=== PATIENT | male | born 1985 ===

== ENCOUNTER 2022-04-20 19:45 | Emergency (ER) | payer BC ==
[2022-04-20 20:56] LABS: Hematocrit 32.6 % (39.6-49.0)
[2022-04-20 20:58] LABS: Protime INR 0.94
[2022-04-20 21:01] LABS: Absolute Lymphocytes (CBC) 2.8 K/uL (0.7-4.9); Lymphocytes % 31.2 % (15.3-44.8); MCV 76.1 fL (80-100); MPV 8.1 fL (7.6-11.3); RBC Red Blood Cell Count 4.28 M/uL (4.33-5.43)
[2022-04-20 21:19] LABS: ALT/SGPT 28 U/L (12-78); AST/SGOT 31 U/L (15-37); Albumin 2.9 g/dL (3.4-5.0); Alkaline Phosphatase 151 U/L (45-117); BUN Blood Urea Nitrogen 17 mg/dL (7-18); Bicarbonate 23 mmol/L (21-32); Bilirubin Total 0.2 mg/dL (0.2-1.0); Glomerular Filtration Rate 72 ml/min (=/>90); Glucose Level 237 mg/dL (74-106); Magnesium 1.8 mg/dL (1.8-2.4); NT PRO-BNP 174 pg/mL (<125); Potassium 3.8 mmol/L (3.5-5.1); Protein, Total 8.7 g/dL (6.4-8.2); Sodium Level 139 mmol/L (136-145)
[2022-04-20 21:20] LABS: Bilirubin Direct < 0.1 mg/dL (0-0.2)
--- NOTE | 2022-04-20 21:39 | ER ---
Nurse's Notes [facility] Name: Дмитрий Soto Age: 36 yrs Sex: Male : 1985 Arrival Date: 04/20/2022 Time: 19:50 Bed 8 Private MD: Diagnosis: Osteomyelitis, unspecified-right foot;Personal history of diabetic foot ulcer;Cellulitis and acute lymphangitis of other parts of limb-foot, ankle;Type 1 diabetes mellitus with hyperglycemia;Anemia, unspecified Presentation: 04/20 20:17 Acuity: OSCAR 2 [facility] 20:27 Chief complaint: Patient states: Diagnosed Osteomyelitis to right foot, left AMA from [address] in [place], [place] after admission 2 weeks ago and drove here for care to foot; PICC line to OWEN from previous facility; Hx of DM type 1. Coronavirus screen: At this time, the client does not indicate any symptoms associated with coronavirus-19. Ebola Screen: No symptoms or risks identified at this time. Initial Sepsis Screen: Does the patient meet any 2 criteria? HR > 90 bpm. Does the patient have a suspected source of infection? Yes: Skin breakdown/wound. Risk Assessment: Do you want to hurt yourself or someone else? Patient reports no desire to harm self or others. Onset of symptoms was April 20, 2022. 20:27 Method Of Arrival: Wheelchair [facility] Historical: - Allergies: 20:29 Demerol; lp1 - Home Meds: 20:31 Omeprazole Oral [Active]; Cymbalta oral [Active]; Oxycodone HCl Oral [Active]; lp1 - PMHx: 20:29 Diabetes mellitus; Depressive disorder; Anxiety; Neuropathy; Hypertensive disorder; HLD;lp1 20:30 Blood clot to right arm; lp1 20:31 DKA; lp1 - PSHx: 20:29 Foot sx; lp1 - Immunization history:: Adult Immunizations up to date. - Social history:: Smoking status: Reported history of juuling and/or vaping. - Family history:: not pertinent. Screenin:03 Abuse screen: Denies threats or abuse. Denies injuries from another. Nutritional sm5 screening: No deficits noted. Tuberculosis screening: No symptoms or risk factors identified. Fall Risk None identified. Assessment: 22:02 General: Appears in no apparent distress. Behavior is cooperative. Pain: Complains of sm5 pain in right foot. Neuro: Level of Consciousness is awake, alert, obeys commands, Oriented to person, place, time, situation. Cardiovascular: Capillary refill < 3 seconds Patient's skin is warm and dry. Rhythm is sinus tachycardia. Respiratory: Airway is patent Trachea midline Respiratory effort is even, unlabored. Musculoskeletal: Swelling R foot. 23:00 Reassessment: No changes from previously documented assessment. Patient and/or family 5 updated on plan of care and expected duration. Pain level reassessed. 04/21 00:23 Reassessment: No changes from previously documented assessment. 5 Vital Signs: 04/20 20:27 BP 124 / 86; Pulse 133; Resp 18; Temp 98.7(O); Pulse Ox 100% on R/A; Pain 8/10; lp1 22:03 BP 132 / 95; Pulse 113; Resp 18; Pulse Ox 98% on R/A; sm5 22:34 Weight 97.98 kg (R); Height 6 ft. 3 in. (190.50 cm) (R); bb 04/21 00:23 BP 140 / 89; Pulse 103; Resp 14; Pulse Ox 98% on R/A; sm5 04/20 22:34 Body Mass Index 27.00 (97.98 kg, 190.50 cm) ED Course: 04/20 19:50 Patient arrived in ED. ag3 20:17 Triage completed. lp1 20:24 Leonardo Hughes MD is Attending Physician. miranda 20:29 Ap Foreman, RYLIE is Primary Nurse. as6 20:29 Arm band placed on. lp1 21:01 XRAY Chest (1 view) In Process Unspecified. EDMS 21:01 Foot Right 3 View XRAY In Process Unspecified. EDMS 21:35 Dr. Hughes initiated transfer with [facility], spoke with Feliz Schaffer. wm 22:02 US Extremity Venous Unilateral Ltd In Process Unspecified. EDMS 22:03 Patient has correct armband on for positive identification. Bed in low position. Call 5 light in reach. Side rails up X2. 22:24 Notified ED physician of a critical lab result(s). lactate of 3.7 Dr Hughes notified. bb 23:29 Wound care: to cellulitis located on right foot was cleaned with Betadine, dressed with sm5 4X4s, cling. 23:37 Pt accepted for transfer by Dr. Camron Lubin. 04/21 00:24 No provider procedures requiring assistance completed. Patient transferred, IV remains [address] Administered Medications: 04/20 22:01 Drug: NS 0.9% 1000 ml Route: IV; Rate: 1 bolus; Site: left upper arm; 5 22:02 Drug: Zosyn (piperacillin-tazobactam) 3.375 grams Route: IVPB; Infused Over: 60 mins; 5 Site: left upper arm; 23:00 Follow up: IV Status: Completed infusion; IV Intake: 100ml [facility] 22:11 Drug: Dilaudid (HYDROmorphone) 1 mg Route: IVP; Site: left upper arm; 5 04/21 00:24 Follow up: Response: No adverse reaction 5 04/20 22:11 Drug: Zofran (Ondansetron) 4 mg Route: IVP; Site: left upper arm; 5 04/21 00:24 Follow up: Response: No adverse reaction [facility] 04/20 23:28 Drug: vancoMYCIN 1.5 grams Route: IVPB; Rate: calculated rate; Site: left upper arm; 5 04/21 00:26 Follow up: IV Status: Infusion continued upon transfer [facility] Medication: 04/20 22:03 VIS not applicable for this client. sm5 Intake: 23:00 IV: 100ml; Total: 100ml. 5 Outcome: 21:38 ER care complete, transfer ordered by MD. jean 04/21 00:24 Transferred by ground EMS to [facility], Transfer form completed. X-rays 5 sent w/ patient. Condition: stable Instructed on the need for transfer. 00:27 Patient left the ED. [facility] Signatures: Dispatcher [employer] EDMS Leonardo Hughes MD MD cha Ballard, Brenda, RN RN bb Marcy Maldonado RN RN lp1 Ainsley Canales Wendy Ap Foreman RN RN as6 Amy Matta RN RN 5
--- NOTE | 2022-04-20 21:39 | EDPHYS ---
Physician Documentation [facility] Name: Дмитрий Soto Age: 36 yrs Sex: Male : 1985 Arrival Date: 04/20/2022 Time: 19:50 Bed 8 Private MD: KWADWO Physician Leonardo Hughes HPI: 04/20 21:23 This 36 yrs old Male presents to ER via Wheelchair with complaints of Open miranda Wound Bottom Of Foot. 21:23 The patient presents with decreased range of motion, pain, swelling, tenderness. The miranda complaints affect the right foot, lateral side of right foot, lateral side of right heel, right lateral malleolus and dorsum of right foot. Context: The problem was sustained at an unknown location. Onset: The symptoms/episode began/occurred 3 month(s) ago. Modifying factors: The symptoms are alleviated by nothing, the symptoms are aggravated by weight bearing, movement, wearing shoes. Associated signs and symptoms: Pertinent positives: swelling, warmth. Severity of symptoms: At their worst the symptoms were moderate, in the emergency department the symptoms are unchanged. The patient has experienced similar episodes in the past, multiple times. Historical: - Allergies: 20:29 Demerol; lp1 - Home Meds: 20:31 Omeprazole Oral [Active]; Cymbalta oral [Active]; Oxycodone HCl Oral [Active]; lp1 - PMHx: 20:29 Diabetes mellitus; Depressive disorder; Anxiety; Neuropathy; Hypertensive disorder; HLD;lp1 20:30 Blood clot to right arm; lp1 20:31 DKA; lp1 - PSHx: 20:29 Foot sx; lp1 - Immunization history:: Adult Immunizations up to date. - Social history:: Smoking status: Reported history of juuling and/or vaping. - Family history:: not pertinent. ROS: 21:23 Constitutional: Negative for fever, chills, and weight loss, Eyes: Negative for injury, miranda pain, redness, and discharge, ENT: Negative for injury, pain, and discharge, Neck: Negative for injury, pain, and swelling, Cardiovascular: Negative for chest pain, palpitations, and edema, Respiratory: Negative for shortness of breath, cough, wheezing, and pleuritic chest pain, Abdomen/GI: Negative for abdominal pain, nausea, vomiting, diarrhea, and constipation, Back: Negative for injury and pain, : Negative for injury, bleeding, discharge, and swelling, Neuro: Negative for headache, weakness, numbness, tingling, and seizure, Psych: Negative for depression, anxiety, suicide ideation, homicidal ideation, and hallucinations, Allergy/Immunology: Negative for hives, rash, and allergies, Endocrine: Negative for neck swelling, polydipsia, polyuria, polyphagia, and marked weight changes, Hematologic/Lymphatic: Negative for swollen nodes, abnormal bleeding, and unusual bruising. 21:23 MS/extremity: Positive for decreased range of motion, erythema, pain, swelling, tenderness, of the lateral aspect of right foot, right heel and dorsum of right foot. Exam: 21:23 Constitutional: This is a well developed, well nourished patient who is awake, alert, miranda and in no acute distress. Head/Face: Normocephalic, atraumatic. Eyes: Pupils equal round and reactive to light, extra-ocular motions intact. Lids and lashes normal. Conjunctiva and sclera are non-icteric and not injected. Cornea within normal limits. Periorbital areas with no swelling, redness, or edema. ENT: Nares patent. No nasal discharge, no septal abnormalities noted. Tympanic membranes are normal and external auditory canals are clear. Oropharynx with no redness, swelling, or masses, exudates, or evidence of obstruction, uvula midline. Mucous membranes moist. Neck: Trachea midline, no thyromegaly or masses palpated, and no cervical lymphadenopathy. Supple, full range of motion without nuchal rigidity, or vertebral point tenderness. No Meningismus. Chest/axilla: Normal chest wall appearance and motion. Nontender with no deformity. No lesions are appreciated. Respiratory: Lungs have equal breath sounds bilaterally, clear to auscultation and percussion. No rales, rhonchi or wheezes noted. No increased work of breathing, no retractions or nasal flaring. Abdomen/GI: Soft, non-tender, with normal bowel sounds. No distension or tympany. No guarding or rebound. No evidence of tenderness throughout. Back: No spinal tenderness. No costovertebral tenderness. Full range of motion. Male : Normal genitalia with no discharge or lesions. Neuro: Awake and alert, GCS 15, oriented to person, place, time, and situation. Cranial nerves II-XII grossly intact. Motor strength 5/5 in all extremities. Sensory grossly intact. Cerebellar exam normal. Normal gait. Psych: Awake, alert, with orientation to person, place and time. Behavior, mood, and affect are within normal limits. 21:23 Cardiovascular: Rate: tachycardic, actual rate is 133 bpm, Rhythm: regular, Pulses: Pulses are 4+ in bilateral radial, brachial, femoral, popliteal, posterior tibial and and dorsalis pedis arteries.. Heart sounds: normal, Edema: is not appreciated, JVD: is not appreciated. 21:32 ECG was reviewed by the Attending Physician. [facility] Vital Signs: 20:27 BP 124 / 86; Pulse 133; Resp 18; Temp 98.7(O); Pulse Ox 100% on R/A; Pain 8/10; lp1 22:03 BP 132 / 95; Pulse 113; Resp 18; Pulse Ox 98% on R/A; sm5 22:34 Weight 97.98 kg (R); Height 6 ft. 3 in. (190.50 cm) (R); bb 04/21 00:23 BP 140 / 89; Pulse 103; Resp 14; Pulse Ox 98% on R/A; sm5 04/20 22:34 Body Mass Index 27.00 (97.98 kg, 190.50 cm) bb MDM: 04/20 20:24 Patient medically screened. [facility] 21:26 Differential diagnosis: fracture, foreign body, gout, cellulitis. Data reviewed: vital miranda signs, nurses notes, lab test result(s), EKG, radiologic studies, plain films. Data interpreted: traffic monitor specialist: rate is 133 beats/min, rhythm is regular. Test interpretation: by ED physician or midlevel provider: ECG, plain radiologic studies. Counseling: I had a detailed discussion with the patient and/or guardian regarding: the historical points, exam findings, and any diagnostic results supporting the discharge/admit diagnosis, lab results, radiology results, the need to transfer to another facility, for higher level of care, [facility] does not immediately have the required specialist. 04/20 20:26 Order name: Basic Metabolic Panel; Complete Time: 23:20 miranda 04/20 20:26 Order name: CBC with Diff; Complete Time: 23:20 [facility] 04/20 20:26 Order name: LFT's; Complete Time: 23:20 [facility] 04/20 20:26 Order name: Magnesium; Complete Time: 23:20 [facility] 04/20 20:26 Order name: NT PRO-BNP; Complete Time: 23:20 [facility] 04/20 20:26 Order name: PT-INR; Complete Time: 21:13 [facility] 04/20 20:26 Order name: Troponin HS; Complete Time: 23:20 [facility] 04/20 20:26 Order name: Sed Rate; Complete Time: 23:20 [facility] 04/20 20:26 Order name: Ketone, Serum; Complete Time: 23:20 [facility] 04/20 20:26 Order name: Blood Culture Adult (2) 04/20 20:26 Order name: SARS-COV-2 RT PCR (Document "Date of Onset" if Symptomatic); Complete Time: [facility] 23:20 04/20 20:47 Order name: Lactate; Complete Time: 23:20 [facility] 04/20 20:47 Order name: Procalcitonin; Complete Time: 23:20 [facility] 04/20 20:26 Order name: XRAY Chest (1 view); Complete Time: 23:20 [facility] 04/20 20:26 Order name: EKG; Complete Time: 20:27 [facility] 04/20 20:26 Order name: Cardiac monitoring; Complete Time: 21:23 [facility] 04/20 20:26 Order name: EKG - Nurse/Tech; Complete Time: 21:41 [facility] 04/20 20:26 Order name: IV Saline Lock; Complete Time: 20:50 [facility] 04/20 20:26 Order name: Labs collected and sent; Complete Time: 20:50 [facility] 04/20 20:26 Order name: O2 Per Protocol; Complete Time: 21:22 [facility] 04/20 20:26 Order name: Foot Right 3 View XRAY; Complete Time: 23:20 [facility] 04/20 21:17 Order name: US Extremity Venous Unilateral Ltd; Complete Time: 23:20 [facility] 04/20 20:26 Order name: O2 Sat Monitoring; Complete Time: 21:22 [facility] 04/20 21:17 Order name: Wound dressing; Complete Time: 23:28 [facility] EC:32 Rate is 113 beats/min. Rhythm is regular. QRS Davy is Normal. NC interval is normal. miranda QRS interval is normal. QT interval is normal. No Q waves. T waves are Normal. No ST changes noted. Clinical impression: Sinus tachycardia. Interpreted by me. Reviewed by me. Administered Medications: 22:01 Drug: NS 0.9% 1000 ml Route: IV; Rate: 1 bolus; Site: left upper arm; [facility] 22:02 Drug: Zosyn (piperacillin-tazobactam) 3.375 grams Route: IVPB; Infused Over: 60 mins; 5 Site: left upper arm; 23:00 Follow up: IV Status: Completed infusion; IV Intake: 100ml [facility] 22:11 Drug: Dilaudid (HYDROmorphone) 1 mg Route: IVP; Site: left upper arm; [facility] 04/21 00:24 Follow up: Response: No adverse reaction [facility] 04/20 22:11 Drug: Zofran (Ondansetron) 4 mg Route: IVP; Site: left upper arm; [facility] 04/21 00:24 Follow up: Response: No adverse reaction [facility] 04/20 23:28 Drug: vancoMYCIN 1.5 grams Route: IVPB; Rate: calculated rate; Site: left upper arm; [facility] 04/21 00:26 Follow up: IV Status: Infusion continued upon transfer [facility] Disposition Summary: 04/20/22 21:38 Transfer Ordered Transfer Location: [facility] miranda Reason: Higher level of care miranda Condition: Fair miranda Problem: new miranda Symptoms: have improved miranda Accepting Physician: to [facility](04/21/22 00:27) 5 Diagnosis - Osteomyelitis, unspecified - right foot miranda - Personal history of diabetic foot ulcer miranda - Cellulitis and acute lymphangitis of other parts of limb - foot, ankle miranda - Type 1 diabetes mellitus with hyperglycemia miranda - Anemia, unspecified miranda Forms: - Medication Reconciliation Form miranda - SBAR form miranda Signatures: Dispatcher [employer] EDLeonardo Lozoya MD MD cha Pena, Laura, RN RN lp1 Amy Matta RN RN sm5 Corrections: (The following items were deleted from the chart) 04/20 23:20 21:38 to [facility] miranda miranda 04/21 00:04/20 20:27 Arterial Blood Gas+RC.LAB.BRZ ordered. EDNH KWADWONH 04/21 00:27 07 23:20 to [place] [id number]
[2022-04-20] MEDS ORDERED: NA CHLORIDE 0.9% 1,000 ML ONE ×2 (21:44→23:16)
[2022-04-20] MEDS ORDERED: PIPERACIL/TAZO 3.375 GM VIAL IV ONE (21:44)
[2022-04-20] MEDS ORDERED: NA CHLORIDE 0.9% 100 ML ONE (21:44)
--- NOTE | 2022-04-20 22:01 | RAD REPORT ---
EXAM DESCRIPTION: RAD - Chest Single View - 04/20/2022 8:59 pm CLINICAL HISTORY: COUGH COMPARISON: None TECHNIQUE: AP portable chest image was obtained 04/20/2022 8:59 pm . FINDINGS: Lungs are clear. Heart and vasculature are normal. No measurable pleural effusion and no p neumothorax. No acute bony abnormality seen. No acute aortic findings suspected. IMPRESSION: No acute cardiopulmonary process.
--- NOTE | 2022-04-20 22:04 | RAD REPORT ---
EXAM DESCRIPTION: RAD - Foot Right 3 View - 04/20/2022 8:59 pm CLINICAL HISTORY: PAIN COMPARISON: Chest Single View dated 04/20/2022 FINDINGS: Early for age degenerative changes are present in the IP joints and first MTP joint. No pa thologic toe or metatarsal finding identifiable. Bone loss changes are present in the lateral midfoot . Bone loss changes are present in the posterolateral cuboid bone and anterior calcaneus. Talocalcane al joint space has been effaced. Radiopaque material is present near the site of bone loss probably a ntibiotic treatment implants. No abnormal air in the soft tissues. No unexplained foreign body. IMPRESSION: Bone loss changes in the lateral mid could presumed to be from osteomyelitis. Implant ma terial is in place probably antibiotic infused implant material.
--- NOTE | 2022-04-20 22:07 | RAD REPORT ---
EXAM DESCRIPTION: US - Extremity Venous Uni Ltd - 04/20/2022 10:01 pm CLINICAL HISTORY: DEFORMITY COMPARISON: None. TECHNIQUE: Real-time sonographic evaluation of the right lower extremity deep venous systems was per formed. FINDINGS: Normal compressibility, flow augmentation, phasic flow and spontaneous flow are identified in the right lower extremity common femoral, superficial femoral, popliteal and posterior tibial vei ns. No intraluminal filling defects seen. IMPRESSION: No DVT in the right lower extremity.
[2022-04-20] MEDS ORDERED: HYDROMORPHONE HCL 1 MG/ML INJ ONE (22:13)
[2022-04-20] MEDS ORDERED: ONDANSETRON 4 MG/2 ML VIAL ONE (22:13)
[2022-04-20] MEDS ORDERED: NA CHLORIDE 0.9% 0 ML ONE (23:16)
[2022-04-20] MEDS ORDERED: VANCOMYCIN 500 MG/VIAL ONE (23:16)
[2022-04-20] MEDS ORDERED: VANCOMYCIN 1 GM/VIAL ONE (23:16)
[2022-04-20] MEDS ORDERED: NA CHLORIDE 0.9% 500 ML ONE (23:18)
[2022-04-21 00:56] VITALS: TEMP 98.7
[2022-04-21 00:58] VITALS: O2SAT 98
[2022-04-21 01:00] VITALS: BP 140/89
--- NOTE | 2022-04-22 08:00 | EKG ---
Test Date: 2022-04-20 Test Time: 21:25:24 Assembler Filters: MICHAELA MEASUREMENT RESULTS: Intervals: Rate: 113 NC: 154 QRSD: 80 QT: 344 QTc: 471 [place]: P: 46 NC: 154 QRS: 69 T: 33 INTERPRETIVE STATEMENTS: Sinus tachycardia Cannot rule out Anterior infarct, age undetermined Abnormal ECG No previous ECG available for comparison Electronically Signed On 04-22-22 07:55:42 CDT by Avtar Nunez
== END 2022-04-21 00:27 | disposition short-term general hospital (02) ==
LOC: ER 19:45
DX: M86.171 Other acute osteomyelitis, right ankle and foot (principal); L03.115 Cellulitis of right lower limb; Z86.31 Personal history of diabetic foot ulcer; E10.65 Type 1 diabetes mellitus with hyperglycemia; D64.9 Anemia, unspecified; Z20.822 Contact with and (suspected) exposure to COVID-19; Z88.5 Allergy status to narcotic agent
CPT/HCPCS: 93005; 87040 ×2; 85025; 80048; 36415; 82010; 83735; 85610; 80076; 83605; 85652; 84484; 84145; 83880; 71045; 73630; 93971; U0003; J2543; J3370; J1170; J7040; J7030 ×2; J2405; 82805; 96365; 96367; 96375; 99285; J7050